=== PATIENT | male | born 1950 | race Caucasian/White ===

== ENCOUNTER 2024-08-25 09:39 | Day surgery (SDC) | payer MEDICARE, OTHER ==
[2024-08-25] MEDS ORDERED: propofoL IV ONE (11:46)
--- NOTE | 2024-08-25 13:16 | XRAY ---
Indication: Bilateral L4-S1 MBB. Intraoperative fluoroscopy provided for 10 seconds. Single digital spot images submitted for interpretation demonstrates posterior needle tips projecting over left and right L4-S1 nerve roots. Correlate with intraoperative findings/report. Incidental aortobiiliac stents.
--- NOTE | 2024-08-25 13:31 | XRAY ---
10 seconds of fluoroscopy was used in surgery for a bilateral L4-S1 MBB.
== END 2024-08-25 12:30 | disposition home or self-care (01) ==
LOC: SDC-PAIN 09:39
PROVIDERS: ATTEND Psychiatry & Neurology Pain Medicine
DX: M47.816 Spondylosis without myelopathy or radiculopathy, lumbar region (principal)
CPT/HCPCS: 64493; 64494; 72020; 77002; J2704

== ENCOUNTER 2024-09-29 11:39 | Day surgery (SDC) | payer MEDICARE, OTHER ==
[2024-09-29] MEDS ORDERED: Depo-Medrol 40 MG/ML IM ONE (11:40)
[2024-09-29] MEDS ORDERED: BUPIVACAINE 0.5% VIAL IJ ONE (11:40)
[2024-09-29] MEDS ORDERED: propofoL IV ONE (14:22)
--- NOTE | 2024-09-29 15:28 | XRAY ---
Indication: Bilateral L4-S1 MBB. Intraoperative fluoroscopy provided for 9 seconds. Single digital spot image submitted for interpretation demonstrates posterior needle tips project over expected left and right L4-S1 nerve roots. Correlate with intraoperative findings/report. Incidental aortobiiliac stents.
--- NOTE | 2024-09-29 17:09 | XRAY ---
9 seconds of fluoroscopy was used in surgery for a bilateral L4-S1 MBB.
== END 2024-09-29 15:02 | disposition home or self-care (01) ==
LOC: SDC-PAIN 11:39
PROVIDERS: ATTEND Psychiatry & Neurology Pain Medicine
DX: M47.816 Spondylosis without myelopathy or radiculopathy, lumbar region (principal)
CPT/HCPCS: 64493; 64494; 72020; 77002; J2704

== ENCOUNTER 2024-11-24 08:11 | Day surgery (SDC) | payer MEDICARE, OTHER ==
[2024-11-24] MEDS ORDERED: Depo-Medrol 40 MG/ML IM ONE (08:12)
[2024-11-24] MEDS ORDERED: BUPIVACAINE 0.5% VIAL IJ ONE (08:12)
[2024-11-24] MEDS ORDERED: LIDOCAINE HCL 1% AMPUL 5 ML IJ ONE (08:12)
[2024-11-24] MEDS ORDERED: Lactated Ringers 500 ML IV ONE (08:14)
[2024-11-24] MEDS ORDERED: propofoL IV ONE (09:47)
--- NOTE | 2024-11-24 11:30 | XRAY ---
Indication: Right L4-S1 RFA. Intraoperative fluoroscopy provided for 22 seconds. 4 digital spot image submitted for interpretation demonstrates posterior needle tips projecting over expected right L4-S1 nerve roots. Correlate with intraoperative findings/report. Incidental incompletely visualized aortobiiliac stents.
--- NOTE | 2024-11-24 12:13 | XRAY ---
22 seconds of fluoroscopy used in surgery for a right L4-S1 RFA.
== END 2024-11-24 10:25 | disposition home or self-care (01) ==
LOC: SDC-PAIN 08:11
PROVIDERS: ATTEND Psychiatry & Neurology Pain Medicine
DX: M47.816 Spondylosis without myelopathy or radiculopathy, lumbar region (principal)
CPT/HCPCS: 64635; 64636; 72100; 99100; J2704

== ENCOUNTER 2024-12-08 12:11 | Day surgery (SDC) | payer MEDICARE, OTHER ==
[2024-12-08] MEDS ORDERED: LIDOCAINE HCL 1% AMPUL 5 ML IJ ONE (12:12)
[2024-12-08] MEDS ORDERED: BUPIVACAINE 0.5% VIAL IJ ONE (12:12)
[2024-12-08] MEDS ORDERED: Depo-Medrol 40 MG/ML IM ONE (12:12)
[2024-12-08] MEDS ORDERED: propofoL IV ONE (14:49)
[2024-12-08] MEDS ORDERED: Lactated Ringers 1,000 ML IV ONE (16:17)
--- NOTE | 2024-12-08 16:53 | XRAY ---
Indication: Left L4-S1 RFA. Intraoperative fluoroscopy provided for 17 seconds. 4 digital spot image submitted for interpretation demonstrates posterior needle tips projecting over expected left L4-S1 nerve roots. Correlate with intraoperative findings/report. Incidental incompletely visualized aortobiiliac stents.
--- NOTE | 2024-12-08 17:25 | XRAY ---
17 seconds of fluoroscopy used in surgery for a left L4-S1 RFA.
== END 2024-12-08 15:00 | disposition home or self-care (01) ==
LOC: SDC-PAIN 12:11
PROVIDERS: ATTEND Psychiatry & Neurology Pain Medicine
DX: M47.817 Spondylosis without myelopathy or radiculopathy, lumbosacral region (principal)
CPT/HCPCS: 64635; 64636; 72100; 99100; J2704